=== PATIENT | female | born 1955 | race Caucasian/White ===

== ENCOUNTER → 2016-09-28 | Outpatient (CLI) | payer OTHER ==
[~2016-09-28] VITALS: Ht 160 cm; Wt 69.3 kg
[~2016-09-28] MED LIST: ASPI-825 PO; CARV3 PO; CLOP75 PO; DICY20 PO; DONNATAL PO; ESOM40CA PO; ESTR0.5T4 PO; EZET10 PO; FENO145T PO; FOLI1TAB15 PO; FURO20 PO; FURO40 PO; GABA-529 PO; GLIM2 PO; HYD25 PO; HYDR-3971 PO; HYDR200T4 PO; ISOS30TA53 PO; ISOS60TA PO; LEVE250T55 PO; LEVE500T53 PO; LOSA50TA37 PO; METHI5 PO; MULT-1203 PO; MYCO500T5 PO; NITR0.4T27 SL; OMEG1CAP31 PO; OMEP40CA12 PO; ONDA4 PO; PANT40TA25 PO; POTA8TAB4 PO; RANO10003 PO; ROSU40 PO; SUCR1TAB PO; TEMA30 PO; VALS80TA2 GT; WARF2 PO; WARF2.5 PO; WARF3TAB29 PO; [UNRECOGNIZED DRUG - CODE] PO; [UNRECOGNIZED DRUG - OTHER] PO
[2016-09-28 14:01] VITALS: BP 123/72
== END | disposition home or self-care (01) ==
LOC: HBOWC 12:34
PROVIDERS: ATTEND Emergency Medicine
DX: E11.621 Type 2 diabetes mellitus with foot ulcer (principal); L97.521 Non-pressure chronic ulcer of other part of left foot limited to breakdown of skin; E11.51 Type 2 diabetes mellitus with diabetic peripheral angiopathy without gangrene; I25.2 Old myocardial infarction; E11.22 Type 2 diabetes mellitus with diabetic chronic kidney disease; I13.0 Hypertensive heart and chronic kidney disease with heart failure and stage 1 through stage 4 chronic kidney disease, or unspecified chronic kidney disease; N18.9 Chronic kidney disease, unspecified; I50.30 Unspecified diastolic (congestive) heart failure; E66.9 Obesity, unspecified; I48.91 Unspecified atrial fibrillation; E46 Unspecified protein-calorie malnutrition; Z86.718 Personal history of other venous thrombosis and embolism
CPT/HCPCS: 97597; G0463

== ENCOUNTER → 2016-10-08 | Outpatient (CLI) | payer OTHER ==
[~2016-10-08] MED LIST changes: -DONNATAL PO; -ESTR0.5T4 PO; -EZET10 PO; -FENO145T PO; -GLIM2 PO; -ISOS60TA PO; -OMEG1CAP31 PO; -POTA8TAB4 PO; -VALS80TA2 GT; -[UNRECOGNIZED DRUG - CODE] PO; -[UNRECOGNIZED DRUG - OTHER] PO
[2016-10-08 09:36] VITALS: BP 99/59
== END | disposition home or self-care (01) ==
LOC: HBOWC 09:24
PROVIDERS: ATTEND Emergency Medicine
DX: E11.621 Type 2 diabetes mellitus with foot ulcer (principal); L97.521 Non-pressure chronic ulcer of other part of left foot limited to breakdown of skin; D68.61 Antiphospholipid syndrome; E11.51 Type 2 diabetes mellitus with diabetic peripheral angiopathy without gangrene; E72.11 Homocystinuria; E11.22 Type 2 diabetes mellitus with diabetic chronic kidney disease; I12.9 Hypertensive chronic kidney disease with stage 1 through stage 4 chronic kidney disease, or unspecified chronic kidney disease; N18.4 Chronic kidney disease, stage 4 (severe); E66.8 Other obesity; I25.2 Old myocardial infarction; I48.91 Unspecified atrial fibrillation
CPT/HCPCS: 97597

== ENCOUNTER → 2016-10-26 | Outpatient (CLI) | payer OTHER ==
[2016-10-26 09:14] VITALS: BP 106/68
== END | disposition home or self-care (01) ==
LOC: HBOWC 08:24
PROVIDERS: ATTEND Emergency Medicine
DX: E11.621 Type 2 diabetes mellitus with foot ulcer (principal); L97.511 Non-pressure chronic ulcer of other part of right foot limited to breakdown of skin; L97.521 Non-pressure chronic ulcer of other part of left foot limited to breakdown of skin; E11.51 Type 2 diabetes mellitus with diabetic peripheral angiopathy without gangrene; D68.61 Antiphospholipid syndrome; E66.8 Other obesity; I25.2 Old myocardial infarction; E11.22 Type 2 diabetes mellitus with diabetic chronic kidney disease; I13.0 Hypertensive heart and chronic kidney disease with heart failure and stage 1 through stage 4 chronic kidney disease, or unspecified chronic kidney disease; N18.4 Chronic kidney disease, stage 4 (severe); I50.30 Unspecified diastolic (congestive) heart failure; I48.91 Unspecified atrial fibrillation; Z86.718 Personal history of other venous thrombosis and embolism
CPT/HCPCS: 97597

== ENCOUNTER → 2016-11-09 | Outpatient (CLI) | payer OTHER ==
[~2016-11-09] MED LIST changes: -DICY20 PO; +ESOM40CA; -ESOM40CA PO; -FURO20 PO; -HYD25 PO; -HYDR-3971 PO; -LEVE250T55 PO; -MYCO500T5 PO; -OMEP40CA12 PO; -ONDA4 PO; -PANT40TA25 PO; -SUCR1TAB PO; -WARF2 PO; -WARF3TAB29 PO
[2016-11-09 10:00] VITALS: BP 113/61
== END | disposition home or self-care (01) ==
LOC: HBOWC 09:08
PROVIDERS: ATTEND Emergency Medicine
DX: E11.621 Type 2 diabetes mellitus with foot ulcer (principal); L97.521 Non-pressure chronic ulcer of other part of left foot limited to breakdown of skin; E11.22 Type 2 diabetes mellitus with diabetic chronic kidney disease; I13.0 Hypertensive heart and chronic kidney disease with heart failure and stage 1 through stage 4 chronic kidney disease, or unspecified chronic kidney disease; N18.4 Chronic kidney disease, stage 4 (severe); I50.30 Unspecified diastolic (congestive) heart failure; I25.2 Old myocardial infarction; E66.8 Other obesity; D68.61 Antiphospholipid syndrome; E11.51 Type 2 diabetes mellitus with diabetic peripheral angiopathy without gangrene; I48.91 Unspecified atrial fibrillation; E72.11 Homocystinuria; E46 Unspecified protein-calorie malnutrition; Z86.718 Personal history of other venous thrombosis and embolism
CPT/HCPCS: 97597

== ENCOUNTER 2016-11-17 05:48 | Day surgery (SDC) | payer OTHER ==
[~2016-11-17] VITALS: Ht 160 cm; Wt 70.0 kg
[~2016-11-17 05:48] MED LIST changes: -ESOM40CA; +ESOM40CA PO; +FURO20 PO; -FURO40 PO; +LEVE250T55 PO; -LEVE500T53 PO; +SODIUM CHLORIDE 0.9% 1,000 ML IV ONE
[2016-11-17] MEDS ORDERED: SODIUM CHLORIDE 0.9% 1,000 ML IV ONE (06:04)
[2016-11-17] MEDS ORDERED: DICY20 PO (06:27)
[2016-11-17] MEDS ORDERED: ONDA4 PO (06:27)
[2016-11-17] MEDS ORDERED: LEVE500T53 PO (06:27)
[2016-11-17] MEDS ORDERED: SUCR1TAB PO (06:27)
[2016-11-17] MEDS ORDERED: OMEP40CA12 PO (06:27)
[2016-11-17] MEDS ORDERED: WARF3TAB29 PO (06:27)
[2016-11-17] MEDS ORDERED: HYDR-3971 PO (06:27)
[2016-11-17] MEDS ORDERED: HYD25 PO (06:27)
[2016-11-17] MEDS ORDERED: WARF2 PO (06:27)
[2016-11-17] MEDS ORDERED: MYCO500T5 PO (06:27)
[2016-11-17] MEDS ORDERED: PANT40TA25 PO (06:27)
[2016-11-17 06:35] LABS: BASOPHILS % (AUTO) 0.3 % (0.0-2.0); EOSINOPHILS % (AUTO) 0 % (1.0-6.0); HEMATOCRIT 42.9 % (36-46); HEMOGLOBIN 13.6 g/dL (12.0-16.0); LYMPHOCYTES # (AUTO) 2.6 K/uL (1.0-4.8); LYMPHOCYTES % (AUTO) 39.8 % (22.0-44.0); MEAN CORPUSCULAR HGB CONC 31.8 G/dL (31.0-37.0); MEAN CORPUSCULAR VOLUME 88 fL (80-100); MONOCYTES # (AUTO) 0.9 K/uL (0.1-1.0); MONOCYTES % (AUTO) 13.5 % (2.0-9.0); NEUTROPHILS % (AUTO) 46.4 % (40.0-70.0); PLATELET COUNT (AUTO) 144 K/uL (150-450); RED BLOOD CELL COUNT(AUTO) 4.88 MIL/uL (4.00-5.20); RED CELL DISTRIBUTION WIDTH 16.3 % (11.5-14.5); WHITE BLOOD COUNT (AUTO) 6.6 K/uL (4.5-11.0)
[2016-11-17 06:46] LABS: INR 1.5 (0.9-1.1); PROTHROMBIN TIME 16.1 SEC (9.4-11.6)
[2016-11-17 07:05] LABS: CALCIUM, TOTAL 8.9 mg/dL (8.8-10.5); CREATININE 1.22 mg/dL (0.60-1.30); POTASSIUM 3.5 mmol/L (3.5-5.1)
[2016-11-17 07:07] LABS: CHOL/HDL RATIO 2.2 (3.9-5.7)
[2016-11-17] MEDS ORDERED: SODIUM BICARBONATE 50 MEQ/50 ML VIAL ONE (07:35)
[2016-11-17] MEDS ORDERED: LIDOCAINE HCL/PF 1% 30 ML VIAL ONE (07:35)
[2016-11-17] MEDS ORDERED: IODIXANOL 320 MG/ML 100 ML VIAL ONE (07:35)
[2016-11-17] MEDS ORDERED: HEPARIN SODIUM 1000 UNITS/NS 500 ML ONE (07:36)
[2016-11-17 07:43] VITALS: BP 135/80
[2016-11-17] MEDS ORDERED: HEPARIN SODIUM 1000 UNITS/NS 500 ML IARTER ONE (08:10)
[2016-11-17] MEDS ORDERED: IODIXANOL 320 MG/ML 100 ML VIAL IARTER ONE ×2 (08:14)
[2016-11-17] MEDS ORDERED: IODIXANOL 320 MG/ML 50 ML VIAL ONE ×2 (08:51→09:25)
[2016-11-17] MEDS ORDERED: HEPARIN SODIUM,PORCINE 1,000 UNITS/ML 10 ML VIAL ONE (08:53)
[2016-11-17] MEDS ORDERED: LIDOCAINE 1% 30 ML/SOD BICARB 8.4% 4 ML SQ ONE (08:55)
[2016-11-17] MEDS ORDERED: HEPARIN SODIUM,PORCINE 5,000 UNITS/ML VIAL IVP ONE (08:59)
[2016-11-17 09:51] VITALS: BP 160/83
== END 2016-11-17 15:45 | disposition home or self-care (01) ==
LOC: SDS 05:48 → EDSTATUS 07:30 → SDS 15:45
PROVIDERS: ATTEND Radiology Vascular & Interventional Radiology
DX: I70.245 Atherosclerosis of native arteries of left leg with ulceration of other part of foot (principal); E11.22 Type 2 diabetes mellitus with diabetic chronic kidney disease; N18.3 Chronic kidney disease, stage 3 (moderate); J45.909 Unspecified asthma, uncomplicated; M54.30 Sciatica, unspecified side; Z88.0 Allergy status to penicillin; Z87.891 Personal history of nicotine dependence; Z98.42 Cataract extraction status, left eye; Z98.41 Cataract extraction status, right eye; Z90.710 Acquired absence of both cervix and uterus; Z95.810 Presence of automatic (implantable) cardiac defibrillator; Z86.79 Personal history of other diseases of the circulatory system; Z86.73 Personal history of transient ischemic attack (TIA), and cerebral infarction without residual deficits; Z85.09 Personal history of malignant neoplasm of other digestive organs; Z85.42 Personal history of malignant neoplasm of other parts of uterus
CPT/HCPCS: 36415; 37228; 75710; 80048; 80061; 85025; 85610; 85730; 93005; C1725; C1760; C1769 ×2; C1887; C1892; J1644 ×2; J3490 ×2; J7030; Q9967 ×2; 36200; 36245; 75630; 75716; 75962; 76937

== ENCOUNTER → 2016-11-23 | Outpatient (CLI) | payer OTHER ==
[~2016-11-23] MED LIST changes: +DICY20 PO; +HYD25 PO; +HYDR-3971 PO; +LEVE500T53 PO; +MYCO500T5 PO; +OMEP40CA12 PO; +ONDA4 PO; +PANT40TA25 PO; -SODIUM CHLORIDE 0.9% 1,000 ML IV ONE; +SUCR1TAB PO; +WARF2 PO; +WARF3TAB29 PO
[2016-11-23 13:50] VITALS: BP 114/62
== END | disposition home or self-care (01) ==
LOC: HBOWC 13:09
PROVIDERS: ATTEND Emergency Medicine Undersea and Hyperbaric Medicine
DX: E11.621 Type 2 diabetes mellitus with foot ulcer (principal); L97.521 Non-pressure chronic ulcer of other part of left foot limited to breakdown of skin; E11.22 Type 2 diabetes mellitus with diabetic chronic kidney disease; I13.0 Hypertensive heart and chronic kidney disease with heart failure and stage 1 through stage 4 chronic kidney disease, or unspecified chronic kidney disease; N18.4 Chronic kidney disease, stage 4 (severe); I50.30 Unspecified diastolic (congestive) heart failure; I25.2 Old myocardial infarction; E66.9 Obesity, unspecified; E46 Unspecified protein-calorie malnutrition; E11.51 Type 2 diabetes mellitus with diabetic peripheral angiopathy without gangrene; I48.91 Unspecified atrial fibrillation; Z86.718 Personal history of other venous thrombosis and embolism
CPT/HCPCS: 97597

== ENCOUNTER → 2016-12-10 | Outpatient (CLI) | payer OTHER ==
[~2016-12-10] MED LIST changes: +LIDOCAINE HCL 2% 5 ML JELLY TP ONE; -WARF2.5 PO
[2016-12-10 10:28] VITALS: BP 100/57
== END | disposition home or self-care (01) ==
LOC: HBOWC 09:35
PROVIDERS: ATTEND Emergency Medicine
DX: E11.621 Type 2 diabetes mellitus with foot ulcer (principal); L97.521 Non-pressure chronic ulcer of other part of left foot limited to breakdown of skin; D68.61 Antiphospholipid syndrome; E11.51 Type 2 diabetes mellitus with diabetic peripheral angiopathy without gangrene; I25.2 Old myocardial infarction; E11.22 Type 2 diabetes mellitus with diabetic chronic kidney disease; I12.9 Hypertensive chronic kidney disease with stage 1 through stage 4 chronic kidney disease, or unspecified chronic kidney disease; N18.4 Chronic kidney disease, stage 4 (severe); I48.91 Unspecified atrial fibrillation; J45.909 Unspecified asthma, uncomplicated; E66.8 Other obesity; Z90.710 Acquired absence of both cervix and uterus; Z87.891 Personal history of nicotine dependence; Z86.718 Personal history of other venous thrombosis and embolism; Z86.73 Personal history of transient ischemic attack (TIA), and cerebral infarction without residual deficits; Z85.42 Personal history of malignant neoplasm of other parts of uterus; Z85.00 Personal history of malignant neoplasm of unspecified digestive organ; Z79.01 Long term (current) use of anticoagulants
CPT/HCPCS: 97597

== ENCOUNTER → 2016-12-24 | Outpatient (CLI) | payer OTHER ==
[~2016-12-24] MED LIST changes: -LIDOCAINE HCL 2% 5 ML JELLY TP ONE
[2016-12-24 13:48] VITALS: BP 119/70
== END | disposition home or self-care (01) ==
LOC: HBOWC 13:08
PROVIDERS: ATTEND Emergency Medicine
DX: E11.621 Type 2 diabetes mellitus with foot ulcer (principal); L97.521 Non-pressure chronic ulcer of other part of left foot limited to breakdown of skin; E11.51 Type 2 diabetes mellitus with diabetic peripheral angiopathy without gangrene; E11.22 Type 2 diabetes mellitus with diabetic chronic kidney disease; I13.0 Hypertensive heart and chronic kidney disease with heart failure and stage 1 through stage 4 chronic kidney disease, or unspecified chronic kidney disease; I50.30 Unspecified diastolic (congestive) heart failure; N18.4 Chronic kidney disease, stage 4 (severe); I25.2 Old myocardial infarction; E66.8 Other obesity; J45.909 Unspecified asthma, uncomplicated; I48.91 Unspecified atrial fibrillation; D68.61 Antiphospholipid syndrome; Z85.00 Personal history of malignant neoplasm of unspecified digestive organ; Z85.42 Personal history of malignant neoplasm of other parts of uterus; Z86.718 Personal history of other venous thrombosis and embolism; Z86.73 Personal history of transient ischemic attack (TIA), and cerebral infarction without residual deficits; Z87.891 Personal history of nicotine dependence; Z98.42 Cataract extraction status, left eye; Z90.710 Acquired absence of both cervix and uterus; Z98.41 Cataract extraction status, right eye; Z79.01 Long term (current) use of anticoagulants
CPT/HCPCS: 97597

== ENCOUNTER → 2017-01-07 | Outpatient (CLI) | payer OTHER ==
[2017-01-07 10:31] VITALS: BP 98/62
== END | disposition home or self-care (01) ==
LOC: HBOWC 09:56
PROVIDERS: ATTEND Emergency Medicine Undersea and Hyperbaric Medicine
DX: E11.621 Type 2 diabetes mellitus with foot ulcer (principal); L97.521 Non-pressure chronic ulcer of other part of left foot limited to breakdown of skin; E11.51 Type 2 diabetes mellitus with diabetic peripheral angiopathy without gangrene; E11.22 Type 2 diabetes mellitus with diabetic chronic kidney disease; I12.9 Hypertensive chronic kidney disease with stage 1 through stage 4 chronic kidney disease, or unspecified chronic kidney disease; N18.4 Chronic kidney disease, stage 4 (severe); I50.30 Unspecified diastolic (congestive) heart failure; J45.909 Unspecified asthma, uncomplicated; I48.91 Unspecified atrial fibrillation; I25.2 Old myocardial infarction; E66.9 Obesity, unspecified; D68.61 Antiphospholipid syndrome; Z85.00 Personal history of malignant neoplasm of unspecified digestive organ; Z85.42 Personal history of malignant neoplasm of other parts of uterus; Z87.891 Personal history of nicotine dependence; Z86.73 Personal history of transient ischemic attack (TIA), and cerebral infarction without residual deficits; Z88.0 Allergy status to penicillin; Z98.42 Cataract extraction status, left eye; Z98.41 Cataract extraction status, right eye; Z79.01 Long term (current) use of anticoagulants; Z90.710 Acquired absence of both cervix and uterus
CPT/HCPCS: 97597

== ENCOUNTER → 2017-01-21 | Outpatient (CLI) | payer OTHER ==
[2017-01-21 10:39] VITALS: BP 99/58
== END | disposition home or self-care (01) ==
LOC: HBOWC 09:13
PROVIDERS: ATTEND Emergency Medicine
DX: E11.621 Type 2 diabetes mellitus with foot ulcer (principal); L97.524 Non-pressure chronic ulcer of other part of left foot with necrosis of bone; S90.511D Abrasion, right ankle, subsequent encounter; D68.61 Antiphospholipid syndrome; E11.40 Type 2 diabetes mellitus with diabetic neuropathy, unspecified; G89.29 Other chronic pain; M32.9 Systemic lupus erythematosus, unspecified; E11.51 Type 2 diabetes mellitus with diabetic peripheral angiopathy without gangrene; E11.22 Type 2 diabetes mellitus with diabetic chronic kidney disease; I13.0 Hypertensive heart and chronic kidney disease with heart failure and stage 1 through stage 4 chronic kidney disease, or unspecified chronic kidney disease; N18.4 Chronic kidney disease, stage 4 (severe); I50.30 Unspecified diastolic (congestive) heart failure; E66.9 Obesity, unspecified; I25.2 Old myocardial infarction; J45.909 Unspecified asthma, uncomplicated; I48.91 Unspecified atrial fibrillation; Z85.42 Personal history of malignant neoplasm of other parts of uterus; Z85.00 Personal history of malignant neoplasm of unspecified digestive organ; Z87.891 Personal history of nicotine dependence; Z86.73 Personal history of transient ischemic attack (TIA), and cerebral infarction without residual deficits; Z79.01 Long term (current) use of anticoagulants; Z88.0 Allergy status to penicillin; Z98.42 Cataract extraction status, left eye; Z90.710 Acquired absence of both cervix and uterus; Z98.41 Cataract extraction status, right eye; X58.XXXD Exposure to other specified factors, subsequent encounter
CPT/HCPCS: 97597

== ENCOUNTER → 2017-02-04 | Outpatient (CLI) | payer OTHER ==
[~2017-02-04] MED LIST changes: +LIDOCAINE HCL 2% 5 ML JELLY TP ONE
[2017-02-04 10:35] VITALS: BP 102/62
== END | disposition home or self-care (01) ==
LOC: HBOWC 09:33
PROVIDERS: ATTEND Emergency Medicine
DX: E11.621 Type 2 diabetes mellitus with foot ulcer (principal); L97.524 Non-pressure chronic ulcer of other part of left foot with necrosis of bone; L97.511 Non-pressure chronic ulcer of other part of right foot limited to breakdown of skin; E11.622 Type 2 diabetes mellitus with other skin ulcer; L97.311 Non-pressure chronic ulcer of right ankle limited to breakdown of skin; E11.22 Type 2 diabetes mellitus with diabetic chronic kidney disease; I13.0 Hypertensive heart and chronic kidney disease with heart failure and stage 1 through stage 4 chronic kidney disease, or unspecified chronic kidney disease; N18.4 Chronic kidney disease, stage 4 (severe); I50.30 Unspecified diastolic (congestive) heart failure; Z79.01 Long term (current) use of anticoagulants; E66.9 Obesity, unspecified; I25.2 Old myocardial infarction; G89.29 Other chronic pain; Z85.42 Personal history of malignant neoplasm of other parts of uterus; Z87.891 Personal history of nicotine dependence; Z86.73 Personal history of transient ischemic attack (TIA), and cerebral infarction without residual deficits; L93.0 Discoid lupus erythematosus; M32.9 Systemic lupus erythematosus, unspecified; E11.40 Type 2 diabetes mellitus with diabetic neuropathy, unspecified; E11.51 Type 2 diabetes mellitus with diabetic peripheral angiopathy without gangrene; I48.91 Unspecified atrial fibrillation; J45.909 Unspecified asthma, uncomplicated; Z86.718 Personal history of other venous thrombosis and embolism
CPT/HCPCS: 97597

== ENCOUNTER 2017-10-20 13:21 | Inpatient (IN) | payer OTHER ==
[~2017-10-20] VITALS: Ht 160 cm; Wt 79.0 kg
[~2017-10-20 13:21] MED LIST changes: -HYDR-3971 PO; +HYDR-4069 PO; +ISOS30TA11 PO; -ISOS30TA53 PO; -LIDOCAINE HCL 2% 5 ML JELLY TP ONE; +MULTIVITAMINS, THERAPEUTIC TABLET PO SCH; -NITR0.4T27 SL; +NITR0.4T50 SL
[2017-10-20] MEDS ORDERED: METHI5 PO (13:42)
[2017-10-20 13:47] LABS: GLUCOSE,POINT OF CARE 83 MG/DL (70-110)
[2017-10-20] MEDS ORDERED: EVOL140S SQ (14:10)
[2017-10-20] MEDS ORDERED: TICA90TA PO (14:10)
[2017-10-20] MEDS ORDERED: POTA8TAB4 PO (14:10)
[2017-10-20] MEDS ORDERED: ASPIRIN 81 MG CHEWABLE TABLET PO ONE (14:15)
[2017-10-20] MEDS ORDERED: NITROGLYCERIN 2% (1 GM=INCH) PACKET TP ONE (14:15)
[2017-10-20 14:28] LABS: BASOPHILS % (AUTO) 0.6 % (0.0-2.0); EOSINOPHILS % (AUTO) 0 % (1.0-6.0); HEMOGLOBIN 14.3 g/dL (12.0-16.0); LYMPHOCYTES # (AUTO) 2.4 K/uL (1.0-4.8); LYMPHOCYTES % (AUTO) 33.1 % (22.0-44.0); MEAN CORPUSCULAR HEMOGLOBIN 27.9 pg (26.0-34.0); MEAN CORPUSCULAR HGB CONC 33.2 G/dL (31.0-37.0); MEAN CORPUSCULAR VOLUME 84 fL (80-100); MONOCYTES # (AUTO) 0.8 K/uL (0.1-1.0); MONOCYTES % (AUTO) 11.3 % (2.0-9.0); PLATELET COUNT (AUTO) 164 K/uL (150-450); RED BLOOD CELL COUNT(AUTO) 5.12 MIL/uL (4.00-5.20); RED CELL DISTRIBUTION WIDTH 16.2 % (11.5-14.5)
[2017-10-20] MEDS ORDERED: MORPHINE SULFATE 4 MG/ML SYRINGE IVP ONE ×2 (14:30→16:45)
[2017-10-20] MEDS ORDERED: ONDANSETRON HCL 4 MG/2 ML VIAL IVP ONE (14:30)
[2017-10-20 14:40] LABS: INR 3.4 (0.9-1.1); PROTHROMBIN TIME 33.9 SEC (9.4-11.6)
[2017-10-20 14:53] LABS: CARBON DIOXIDE 28 mmol/L (22-29); CHLORIDE 104 mmol/L (98-107); POTASSIUM 3.9 mmol/L (3.5-5.1); SODIUM SERUM 141 mmol/L (136-145)
[2017-10-20 14:54] LABS: ANION GAP 9 mmol/L (8-16); CALCIUM, TOTAL 9.5 mg/dL (8.8-10.5); CREATININE 1.31 mg/dL (0.60-1.30); GLOMERULAR FILTR. RATE CALC 41 mL/min (>60); GLUCOSE,RANDOM 82 mg/dL (70-110); UREA NITROGEN, BLOOD 24 mg/dL (7-18)
[2017-10-20 15:00] LABS: B-TYPE NATRIURETIC PEPTIDE 343 pg/mL (0-100)
[2017-10-20] MEDS ORDERED: SODIUM CHLORIDE 0.9% 100 ML ONE (15:15)
[2017-10-20] MEDS ORDERED: IOVERSOL 350 MG/ML 100 ML VIAL ONE (15:15)
[2017-10-20 15:19] LABS: ALANINE AMINOTRANSFERASE 29 U/L (12-78); ALBUMIN 3.6 g/dL (3.4-5.0); ALKALINE PHOSPHATASE 79 U/L (46-116); ASPARTATE AMINOTRANSFERASE 29 U/L (15-37); BILIRUBIN,TOTAL 0.4 mg/dL (0.1-1.0); CREATINE KINASE MB 1.8 ng/mL (0-5); CREATINE KINASE, TOTAL 162 U/L (26-192); TOTAL PROTEIN, SERUM 8.1 g/dL (6.4-8.2)
[2017-10-20 16:28] LABS: APPEARANCE,URINE CLEAR (CLEAR); BILIRUBIN,URINE NEGATIVE (NEGATIVE); GLUCOSE, URINE (UA) NEGATIVE (NEGATIVE); KETONES,URINE NEGATIVE (NEGATIVE); LEUKOCYTE ESTERASE ,URINE NEGATIVE (NEGATIVE); NITRATE,URINE POSITIVE (NEGATIVE); OCCULT BLOOD,URINE SMALL (NEGATIVE); PH,URINE 5.5 (5.0-8.0); PROTEIN,URINE TRACE (NEGATIVE); UROBILINOGEN,URINE 0.2 mg/dL (<=1.0)
[2017-10-20] MEDS ORDERED: 0.9% SODIUM CHLORIDE 10 ML SYRINGE IVP PRN (16:45)
[2017-10-20] MEDS ORDERED: ACETAMINOPHEN 325 MG TABLET PO PRN (16:45)
[2017-10-20] MEDS ORDERED: MORPHINE SULFATE 4 MG/ML SYRINGE IVP PRN (16:45)
[2017-10-20] MEDS ORDERED: ONDANSETRON HCL 4 MG/2 ML VIAL IVP PRN (16:45)
[2017-10-20 16:47] LABS: BACTERIA,URINE Moderate /HPF (None Seen); RBC,URINE 0-2 /HPF (0-2); WBC,URINE 0-2 /HPF (0-5)
[2017-10-20 16:48] LABS: RENAL EPITHELIAL CELLS,URINE Few /LPF (None Seen); SQUAMOUS EPITHELIAL CELL,UR Few /LPF (None Seen)
[2017-10-20] MEDS ORDERED: NITROGLYCERIN 0.4 MG SUBLINGUAL TABLET #25 SL PRN (20:00)
[2017-10-20] MEDS ORDERED: HYDROCODONE/ACETAMINOPHEN 10-325 MG TABLET PO SCH (20:00)
[2017-10-20] MEDS: ASPIRIN 81 MG CHEWABLE TABLET PO SCH (20:00)
[2017-10-20] MEDS: FUROSEMIDE 20 MG TABLET PO SCH (20:00)
[2017-10-20] MEDS ORDERED: ONDANSETRON HCL 4 MG TABLET PO PRN (20:00)
[2017-10-20] MEDS ORDERED: ISOSORBIDE DINITRATE 20 MG TABLET PO SCH (21:00)
[2017-10-20] MEDS ORDERED: [UNRECOGNIZED DRUG - OTHER] PO SCH (21:00)
[2017-10-20] MEDS ORDERED: CARVEDILOL 3.125 MG TABLET PO SCH (21:00)
[2017-10-20] MEDS ORDERED: ISOSORBIDE DINITRATE PO SCH (21:00)
[2017-10-20] MEDS ORDERED: [UNRECOGNIZED DRUG - OTHER] PO SCH (21:00)
[2017-10-20 21:40] VITALS: BP 132/74
[2017-10-20] MEDS: TICAGRELOR 90 MG TABLET PO SCH (22:28)
[2017-10-20] MEDS: DICYCLOMINE HCL 20 MG TABLET PO SCH (22:28)
[2017-10-20] MEDS: ROSUVASTATIN CALCIUM 20 MG TABLET PO SCH (22:29)
[2017-10-20] MEDS: FOLIC ACID 1 MG TABLET PO SCH (22:30)
[2017-10-20] MEDS: LevETIRAcetam 500 MG TABLET PO SCH (22:32)
[2017-10-20] MEDS: GABAPENTIN 300 MG CAPSULE PO SCH (22:32)
[2017-10-20] MEDS: HYDROXYCHLOROQUINE SULFATE 200 MG TABLET PO SCH (22:33)
[2017-10-20] MEDS: RANOLAZINE 500 MG SR TABLET PO SCH (22:33)
[2017-10-21] VITALS (8 sets, daily range): BP systolic 96–120; BP diastolic 56–72
[2017-10-21 06:41] LABS: ALBUMIN 3.2 g/dL (3.4-5.0); BILIRUBIN,TOTAL 0.3 mg/dL (0.1-1.0); CALCIUM, TOTAL 9.1 mg/dL (8.8-10.5); CREATININE 1.48 mg/dL (0.60-1.30); MAGNESIUM 1.8 mg/dL (1.80-2.40); POTASSIUM 3.7 mmol/L (3.5-5.1); TOTAL PROTEIN, SERUM 7.1 g/dL (6.4-8.2)
[2017-10-21 06:58] LABS: BASOPHILS % (AUTO) 0.4 % (0.0-2.0); EOSINOPHILS % (AUTO) 0.4 % (1.0-6.0); HEMATOCRIT 40.3 % (36-46); HEMOGLOBIN 13.5 g/dL (12.0-16.0); LYMPHOCYTES # (AUTO) 2.4 K/uL (1.0-4.8); MEAN CORPUSCULAR HEMOGLOBIN 28.5 pg (26.0-34.0); MEAN CORPUSCULAR HGB CONC 33.6 G/dL (31.0-37.0); MEAN CORPUSCULAR VOLUME 85 fL (80-100); MONOCYTES # (AUTO) 0.9 K/uL (0.1-1.0); NEUTROPHILS % (AUTO) 47.2 % (40.0-70.0); PLATELET COUNT (AUTO) 154 K/uL (150-450); RED BLOOD CELL COUNT(AUTO) 4.74 MIL/uL (4.00-5.20); RED CELL DISTRIBUTION WIDTH 16.6 % (11.5-14.5)
[2017-10-21] MEDS: ASPIRIN 81 MG CHEWABLE TABLET PO SCH (08:50)
[2017-10-21] MEDS: FUROSEMIDE 20 MG TABLET PO SCH (08:50)
[2017-10-21] MEDS: RANOLAZINE 500 MG SR TABLET PO SCH ×2 (08:50→20:31)
[2017-10-21] MEDS: FOLIC ACID 1 MG TABLET PO SCH ×2 (08:50→20:30)
[2017-10-21] MEDS: LevETIRAcetam 500 MG TABLET PO SCH ×2 (08:50→20:29)
[2017-10-21] MEDS: MULTIVITAMINS, THERAPEUTIC TABLET PO SCH (08:50)
[2017-10-21] MEDS: ISOSORBIDE DINITRATE 20 MG TABLET PO SCH ×2 (08:51→21:06)
[2017-10-21] MEDS: HYDROXYCHLOROQUINE SULFATE 200 MG TABLET PO SCH ×2 (08:52→20:30)
[2017-10-21] MEDS: TICAGRELOR 90 MG TABLET PO SCH ×2 (08:52→20:30)
[2017-10-21] MEDS: GABAPENTIN 100 MG CAPSULE PO SCH (08:52)
[2017-10-21] MEDS: DICYCLOMINE HCL 20 MG TABLET PO SCH ×2 (08:53→20:31)
[2017-10-21] MEDS ORDERED: [UNRECOGNIZED DRUG - OTHER] PO SCH (09:00)
[2017-10-21] MEDS ORDERED: WARFARIN SODIUM 2 MG TABLET PO SCH ×2 (09:00→17:00)
[2017-10-21] MEDS: FUROSEMIDE 20 MG/2 ML VIAL IVP SCH (09:00)
[2017-10-21] MEDS: CARVEDILOL 3.125 MG TABLET PO SCH ×2 (10:02→20:28)
[2017-10-21 11:03] LABS: INR 3.2 (0.9-1.1); PROTHROMBIN TIME 31.8 SEC (9.4-11.6)
[2017-10-21] MEDS: GABAPENTIN 300 MG CAPSULE PO SCH (20:30)
[2017-10-21] MEDS ORDERED: GABA-531 PO (20:31)
[2017-10-21] MEDS ORDERED: CARV6 PO (20:31)
[2017-10-21] MEDS: ROSUVASTATIN CALCIUM 20 MG TABLET PO SCH (20:31)
[2017-10-21] MEDS: HydrOXYzine HCL 25 MG TABLET PO SCH (21:55)
[2017-10-21] MEDS ORDERED: MORPHINE SULFATE 4 MG/ML SYRINGE IVP ONE (23:00)
[2017-10-22] VITALS (7 sets, daily range): BP systolic 101–124; BP diastolic 58–65
[2017-10-22 06:21] LABS: INR 2.4 (0.9-1.1); PROTHROMBIN TIME 24.1 SEC (9.4-11.6)
[2017-10-22 06:22] LABS: BASOPHILS % (AUTO) 0.4 % (0.0-2.0); EOSINOPHILS % (AUTO) 0.3 % (1.0-6.0); HEMATOCRIT 36.7 % (36-46); HEMOGLOBIN 12.4 g/dL (12.0-16.0); LYMPHOCYTES # (AUTO) 2.2 K/uL (1.0-4.8); LYMPHOCYTES % (AUTO) 36.3 % (22.0-44.0); MEAN CORPUSCULAR HEMOGLOBIN 28.3 pg (26.0-34.0); MEAN CORPUSCULAR HGB CONC 33.8 G/dL (31.0-37.0); MEAN CORPUSCULAR VOLUME 84 fL (80-100); MONOCYTES # (AUTO) 0.9 K/uL (0.1-1.0); MONOCYTES % (AUTO) 15.5 % (2.0-9.0); NEUTROPHILS # (AUTO) 2.9 K/uL (1.8-7.7); NEUTROPHILS % (AUTO) 47.5 % (40.0-70.0); PLATELET COUNT (AUTO) 140 K/uL (150-450); RED BLOOD CELL COUNT(AUTO) 4.39 MIL/uL (4.00-5.20); RED CELL DISTRIBUTION WIDTH 15.6 % (11.5-14.5)
[2017-10-22 07:06] LABS: ALBUMIN 2.9 g/dL (3.4-5.0); BILIRUBIN,TOTAL 0.3 mg/dL (0.1-1.0); CALCIUM, TOTAL 8.7 mg/dL (8.8-10.5); CREATININE 1.31 mg/dL (0.60-1.30); MAGNESIUM 1.8 mg/dL (1.80-2.40); POTASSIUM 3.5 mmol/L (3.5-5.1); TOTAL PROTEIN, SERUM 6.4 g/dL (6.4-8.2)
[2017-10-22] MEDS: MULTIVITAMINS, THERAPEUTIC TABLET PO SCH (08:41)
[2017-10-22] MEDS: CARVEDILOL 3.125 MG TABLET PO SCH ×2 (08:41→21:52)
[2017-10-22] MEDS: LevETIRAcetam 500 MG TABLET PO SCH ×2 (08:41→21:52)
[2017-10-22] MEDS: FUROSEMIDE 20 MG/2 ML VIAL IVP SCH ×2 (08:42→09:00)
[2017-10-22] MEDS: ASPIRIN 81 MG CHEWABLE TABLET PO SCH (08:42)
[2017-10-22] MEDS: FOLIC ACID 1 MG TABLET PO SCH ×2 (08:43→21:51)
[2017-10-22] MEDS: RANOLAZINE 500 MG SR TABLET PO SCH ×2 (08:43→21:51)
[2017-10-22] MEDS: ISOSORBIDE DINITRATE 20 MG TABLET PO SCH ×2 (08:46→21:52)
[2017-10-22] MEDS: GABAPENTIN 100 MG CAPSULE PO SCH (08:46)
[2017-10-22] MEDS: DICYCLOMINE HCL 20 MG TABLET PO SCH ×2 (08:46→21:52)
[2017-10-22] MEDS: TICAGRELOR 90 MG TABLET PO SCH ×2 (08:47→21:52)
[2017-10-22] MEDS: HYDROXYCHLOROQUINE SULFATE 200 MG TABLET PO SCH ×2 (08:49→21:52)
[2017-10-22] MEDS: METHIMAZOLE 5 MG TABLET PO SCH (08:50)
[2017-10-22] MEDS: HydrOXYzine PAMOATE 25 MG CAPSULE PO PRN ×3 (10:35→21:52)
[2017-10-22] MEDS: HYDROCODONE/ACETAMINOPHEN 10-325 MG TABLET PO PRN ×3 (10:36→21:53)
[2017-10-22] MEDS: WARFARIN SODIUM 3 MG TABLET PO SCH (17:42)
[2017-10-22] MEDS: GABAPENTIN 300 MG CAPSULE PO SCH (21:52)
[2017-10-22] MEDS: ROSUVASTATIN CALCIUM 20 MG TABLET PO SCH (21:53)
[2017-10-22] MEDS: HydrOXYzine HCL 25 MG TABLET PO SCH (21:56)
[2017-10-22] MEDS ORDERED: MYCO250C36 PO (22:05)
[2017-10-23 03:44] VITALS: BP 93/53
[2017-10-23 06:56] LABS: INR 1.8 (0.9-1.1); PROTHROMBIN TIME 18.2 SEC (9.4-11.6)
[2017-10-23 07:18] VITALS: BP 95/54
[2017-10-23 07:23] LABS: ANION GAP 8 mmol/L (8-16); CALCIUM, TOTAL 8.6 mg/dL (8.8-10.5); CARBON DIOXIDE 26 mmol/L (22-29); CHLORIDE 105 mmol/L (98-107); CREATINE KINASE MB 0.8 ng/mL (0-5); CREATINE KINASE, TOTAL 85 U/L (26-192); CREATININE 1.26 mg/dL (0.60-1.30); GLOMERULAR FILTR. RATE CALC 43 mL/min (>60); GLUCOSE,RANDOM 149 mg/dL (70-110); POTASSIUM 3.6 mmol/L (3.5-5.1); SODIUM SERUM 139 mmol/L (136-145); UREA NITROGEN, BLOOD 19 mg/dL (7-18)
[2017-10-23 07:52] LABS: B-TYPE NATRIURETIC PEPTIDE 232 pg/mL (0-100)
[2017-10-23] MEDS: CARVEDILOL 3.125 MG TABLET PO SCH ×2 (09:00→21:00)
[2017-10-23] MEDS: FUROSEMIDE 20 MG/2 ML VIAL IVP SCH (09:00)
[2017-10-23] MEDS: LevETIRAcetam 500 MG TABLET PO SCH ×2 (10:19→21:55)
[2017-10-23] MEDS: ASPIRIN 81 MG CHEWABLE TABLET PO SCH (10:19)
[2017-10-23] MEDS: MULTIVITAMINS, THERAPEUTIC TABLET PO SCH (10:19)
[2017-10-23] MEDS: FOLIC ACID 1 MG TABLET PO SCH ×2 (10:19→21:55)
[2017-10-23] MEDS: DICYCLOMINE HCL 20 MG TABLET PO SCH ×2 (10:20→21:54)
[2017-10-23] MEDS: RANOLAZINE 500 MG SR TABLET PO SCH ×2 (10:20→21:56)
[2017-10-23] MEDS: TICAGRELOR 90 MG TABLET PO SCH ×2 (10:21→21:54)
[2017-10-23] MEDS: GABAPENTIN 100 MG CAPSULE PO SCH (10:21)
[2017-10-23] MEDS: HYDROXYCHLOROQUINE SULFATE 200 MG TABLET PO SCH ×2 (10:22→21:56)
[2017-10-23] MEDS: ISOSORBIDE DINITRATE 20 MG TABLET PO SCH ×2 (10:22→21:00)
[2017-10-23 11:34] VITALS: BP 111/63
[2017-10-23 16:18] VITALS: BP 109/65
[2017-10-23] MEDS: WARFARIN SODIUM 3 MG TABLET PO SCH (17:53)
[2017-10-23 19:18] VITALS: BP 140/68
[2017-10-23] MEDS: HydrOXYzine HCL 25 MG TABLET PO SCH (21:53)
[2017-10-23] MEDS: MYCOPHENOLATE MOFETIL 250 MG CAPSULE PO SCH (21:54)
[2017-10-23] MEDS: ROSUVASTATIN CALCIUM 20 MG TABLET PO SCH (21:54)
[2017-10-23] MEDS: GABAPENTIN 300 MG CAPSULE PO SCH (21:56)
[2017-10-23] MEDS: HYDROCODONE/ACETAMINOPHEN 10-325 MG TABLET PO PRN (21:57)
[2017-10-24 00:05] VITALS: BP 136/74
[2017-10-24 05:30] VITALS: BP 105/59
[2017-10-24 06:16] LABS: INR 1.7 (0.9-1.1); PROTHROMBIN TIME 17.5 SEC (9.4-11.6)
[2017-10-24] MEDS: MYCOPHENOLATE MOFETIL 250 MG CAPSULE PO SCH (08:13)
[2017-10-24] MEDS: ISOSORBIDE DINITRATE 20 MG TABLET PO SCH (08:15)
[2017-10-24] MEDS: LevETIRAcetam 500 MG TABLET PO SCH (08:15)
[2017-10-24] MEDS: FUROSEMIDE 20 MG/2 ML VIAL IVP SCH (08:16)
[2017-10-24] MEDS: DICYCLOMINE HCL 20 MG TABLET PO SCH (08:16)
[2017-10-24] MEDS: FOLIC ACID 1 MG TABLET PO SCH (08:16)
[2017-10-24] MEDS: METHIMAZOLE 5 MG TABLET PO SCH (08:17)
[2017-10-24] MEDS: RANOLAZINE 500 MG SR TABLET PO SCH (08:17)
[2017-10-24] MEDS: HYDROXYCHLOROQUINE SULFATE 200 MG TABLET PO SCH (08:18)
[2017-10-24] MEDS: GABAPENTIN 100 MG CAPSULE PO SCH (08:20)
[2017-10-24] MEDS: MULTIVITAMINS, THERAPEUTIC TABLET PO SCH (08:21)
[2017-10-24] MEDS: TICAGRELOR 90 MG TABLET PO SCH (08:22)
[2017-10-24] MEDS: CARVEDILOL 3.125 MG TABLET PO SCH (08:22)
[2017-10-24] MEDS: ASPIRIN 81 MG CHEWABLE TABLET PO SCH (08:23)
[2017-10-24 08:30] VITALS: BP 154/79
[2017-10-24 11:32] VITALS: BP 103/54
[2017-10-24 15:35] VITALS: BP 116/66
== END 2017-10-24 16:00 | disposition home or self-care (01) | DRG 194 ==
LOC: EMS 13:22 → 5S 18:52
PROVIDERS: ADMIT Internal Medicine; ATTEND Internal Medicine
DX: I13.0 Hypertensive heart and chronic kidney disease with heart failure and stage 1 through stage 4 chronic kidney disease, or unspecified chronic kidney disease (principal); D68.61 Antiphospholipid syndrome; E11.22 Type 2 diabetes mellitus with diabetic chronic kidney disease; N20.9 Urinary calculus, unspecified; E11.51 Type 2 diabetes mellitus with diabetic peripheral angiopathy without gangrene; I44.0 Atrioventricular block, first degree; I50.31 Acute diastolic (congestive) heart failure; I25.110 Atherosclerotic heart disease of native coronary artery with unstable angina pectoris; N18.9 Chronic kidney disease, unspecified; G89.29 Other chronic pain; M79.2 Neuralgia and neuritis, unspecified; E03.9 Hypothyroidism, unspecified; I25.2 Old myocardial infarction; Z95.0 Presence of cardiac pacemaker; Z95.1 Presence of aortocoronary bypass graft; Z95.5 Presence of coronary angioplasty implant and graft; Z88.0 Allergy status to penicillin; Z88.8 Allergy status to other drugs, medicaments and biological substances; Z79.82 Long term (current) use of aspirin; Z79.899 Other long term (current) drug therapy; Z85.41 Personal history of malignant neoplasm of cervix uteri; Z86.718 Personal history of other venous thrombosis and embolism; Z86.73 Personal history of transient ischemic attack (TIA), and cerebral infarction without residual deficits; Z87.442 Personal history of urinary calculi; Z87.440 Personal history of urinary (tract) infections
CPT/HCPCS: 71275; 76770; 82962; 83735; 87086; 93005; 93306; 96374; 96375; 96376; 97110; 97161; 97167; 97535; 99291; J1940; J2270; J2405; J7050; J7517; Q0162

== ENCOUNTER → 2018-07-21 | Outpatient (CLI) | payer OTHER ==
[~2018-07-21] VITALS: Ht 160 cm; Wt 79.0 kg
[~2018-07-21] MED LIST changes: -CARV3 PO; +CARV6 PO; -CLOP75 PO; -ESOM40CA PO; +EVOL140S SQ; +GABA-531 PO; -LOSA50TA37 PO; -MULTIVITAMINS, THERAPEUTIC TABLET PO SCH; +MYCO250C36 PO; -MYCO500T5 PO; -PANT40TA25 PO; +POTA8TAB4 PO; -SUCR1TAB PO; -TEMA30 PO; +TICA90TA PO
[2018-07-21 09:51] VITALS: BP 129/70
== END | disposition home or self-care (01) ==
LOC: HBOWC 09:00
PROVIDERS: ATTEND Podiatrist
DX: E11.621 Type 2 diabetes mellitus with foot ulcer (principal); L97.522 Non-pressure chronic ulcer of other part of left foot with fat layer exposed; L97.422 Non-pressure chronic ulcer of left heel and midfoot with fat layer exposed; I25.10 Atherosclerotic heart disease of native coronary artery without angina pectoris; E11.51 Type 2 diabetes mellitus with diabetic peripheral angiopathy without gangrene; E11.622 Type 2 diabetes mellitus with other skin ulcer; I13.0 Hypertensive heart and chronic kidney disease with heart failure and stage 1 through stage 4 chronic kidney disease, or unspecified chronic kidney disease; I50.31 Acute diastolic (congestive) heart failure; N18.9 Chronic kidney disease, unspecified; E03.9 Hypothyroidism, unspecified; I25.2 Old myocardial infarction; G89.29 Other chronic pain; Z79.82 Long term (current) use of aspirin; Z86.73 Personal history of transient ischemic attack (TIA), and cerebral infarction without residual deficits; Z95.0 Presence of cardiac pacemaker; Z85.41 Personal history of malignant neoplasm of cervix uteri; Z79.01 Long term (current) use of anticoagulants; Z86.718 Personal history of other venous thrombosis and embolism; Z95.1 Presence of aortocoronary bypass graft; Z89.422 Acquired absence of other left toe(s)
CPT/HCPCS: 11042

== ENCOUNTER → 2018-07-28 | Outpatient (CLI) | payer OTHER ==
[2018-07-28 12:26] VITALS: BP 120/67
== END | disposition home or self-care (01) ==
LOC: HBOWC 10:34
PROVIDERS: ATTEND Podiatrist
DX: E11.621 Type 2 diabetes mellitus with foot ulcer (principal); L97.522 Non-pressure chronic ulcer of other part of left foot with fat layer exposed; L97.421 Non-pressure chronic ulcer of left heel and midfoot limited to breakdown of skin; I87.2 Venous insufficiency (chronic) (peripheral); E11.51 Type 2 diabetes mellitus with diabetic peripheral angiopathy without gangrene; I25.10 Atherosclerotic heart disease of native coronary artery without angina pectoris; E11.22 Type 2 diabetes mellitus with diabetic chronic kidney disease; I13.0 Hypertensive heart and chronic kidney disease with heart failure and stage 1 through stage 4 chronic kidney disease, or unspecified chronic kidney disease; I50.31 Acute diastolic (congestive) heart failure; N18.9 Chronic kidney disease, unspecified; E03.9 Hypothyroidism, unspecified; I25.2 Old myocardial infarction; G89.29 Other chronic pain; Z85.41 Personal history of malignant neoplasm of cervix uteri; Z79.01 Long term (current) use of anticoagulants; Z79.82 Long term (current) use of aspirin; Z86.718 Personal history of other venous thrombosis and embolism; Z95.1 Presence of aortocoronary bypass graft; Z86.73 Personal history of transient ischemic attack (TIA), and cerebral infarction without residual deficits; Z95.0 Presence of cardiac pacemaker; Z89.422 Acquired absence of other left toe(s)
CPT/HCPCS: 11042

== ENCOUNTER → 2018-08-04 | Outpatient (CLI) | payer OTHER ==
[2018-08-04 10:36] VITALS: BP 128/68
== END | disposition home or self-care (01) ==
LOC: HBOWC 10:12
PROVIDERS: ATTEND Podiatrist
DX: E11.621 Type 2 diabetes mellitus with foot ulcer (principal); L97.422 Non-pressure chronic ulcer of left heel and midfoot with fat layer exposed; L97.522 Non-pressure chronic ulcer of other part of left foot with fat layer exposed; E11.51 Type 2 diabetes mellitus with diabetic peripheral angiopathy without gangrene; I87.2 Venous insufficiency (chronic) (peripheral); E03.9 Hypothyroidism, unspecified; I25.10 Atherosclerotic heart disease of native coronary artery without angina pectoris; E11.22 Type 2 diabetes mellitus with diabetic chronic kidney disease; I13.0 Hypertensive heart and chronic kidney disease with heart failure and stage 1 through stage 4 chronic kidney disease, or unspecified chronic kidney disease; I50.31 Acute diastolic (congestive) heart failure; N18.9 Chronic kidney disease, unspecified; I25.2 Old myocardial infarction; G89.29 Other chronic pain; Z85.41 Personal history of malignant neoplasm of cervix uteri; Z86.718 Personal history of other venous thrombosis and embolism; Z95.1 Presence of aortocoronary bypass graft; Z95.0 Presence of cardiac pacemaker; Z86.73 Personal history of transient ischemic attack (TIA), and cerebral infarction without residual deficits; Z79.82 Long term (current) use of aspirin; Z79.01 Long term (current) use of anticoagulants; Z89.422 Acquired absence of other left toe(s)
CPT/HCPCS: 11042

== ENCOUNTER → 2018-08-11 | Outpatient (CLI) | payer OTHER ==
[2018-08-11 11:01] VITALS: BP 132/68
== END | disposition home or self-care (01) ==
LOC: HBOWC 09:38
PROVIDERS: ATTEND Podiatrist
DX: E11.621 Type 2 diabetes mellitus with foot ulcer (principal); L97.522 Non-pressure chronic ulcer of other part of left foot with fat layer exposed; L97.422 Non-pressure chronic ulcer of left heel and midfoot with fat layer exposed; I87.2 Venous insufficiency (chronic) (peripheral); E11.51 Type 2 diabetes mellitus with diabetic peripheral angiopathy without gangrene; I25.10 Atherosclerotic heart disease of native coronary artery without angina pectoris; E03.9 Hypothyroidism, unspecified; E11.22 Type 2 diabetes mellitus with diabetic chronic kidney disease; I13.0 Hypertensive heart and chronic kidney disease with heart failure and stage 1 through stage 4 chronic kidney disease, or unspecified chronic kidney disease; N18.9 Chronic kidney disease, unspecified; I50.31 Acute diastolic (congestive) heart failure; I25.2 Old myocardial infarction; G89.29 Other chronic pain; Z85.41 Personal history of malignant neoplasm of cervix uteri; Z86.718 Personal history of other venous thrombosis and embolism; Z86.73 Personal history of transient ischemic attack (TIA), and cerebral infarction without residual deficits; Z79.01 Long term (current) use of anticoagulants; Z79.82 Long term (current) use of aspirin; Z95.0 Presence of cardiac pacemaker; Z95.1 Presence of aortocoronary bypass graft; Z89.422 Acquired absence of other left toe(s)
CPT/HCPCS: 11042

== ENCOUNTER → 2018-08-18 | Outpatient (CLI) | payer OTHER ==
[2018-08-18 10:00] VITALS: BP 119/58
== END | disposition home or self-care (01) ==
LOC: HBOWC 09:39
PROVIDERS: ATTEND Podiatrist
DX: E11.621 Type 2 diabetes mellitus with foot ulcer (principal); L97.522 Non-pressure chronic ulcer of other part of left foot with fat layer exposed; L97.422 Non-pressure chronic ulcer of left heel and midfoot with fat layer exposed; E11.51 Type 2 diabetes mellitus with diabetic peripheral angiopathy without gangrene; I87.2 Venous insufficiency (chronic) (peripheral); E03.9 Hypothyroidism, unspecified; I25.10 Atherosclerotic heart disease of native coronary artery without angina pectoris; E11.22 Type 2 diabetes mellitus with diabetic chronic kidney disease; I13.0 Hypertensive heart and chronic kidney disease with heart failure and stage 1 through stage 4 chronic kidney disease, or unspecified chronic kidney disease; I50.31 Acute diastolic (congestive) heart failure; N18.9 Chronic kidney disease, unspecified; I25.2 Old myocardial infarction; G89.29 Other chronic pain; Z86.718 Personal history of other venous thrombosis and embolism; Z85.41 Personal history of malignant neoplasm of cervix uteri; Z95.1 Presence of aortocoronary bypass graft; Z86.73 Personal history of transient ischemic attack (TIA), and cerebral infarction without residual deficits; Z79.01 Long term (current) use of anticoagulants; Z79.82 Long term (current) use of aspirin; Z89.422 Acquired absence of other left toe(s); Z95.0 Presence of cardiac pacemaker
CPT/HCPCS: 11042

== ENCOUNTER → 2018-08-25 | Outpatient (CLI) | payer OTHER ==
[2018-08-25 11:00] VITALS: BP 100/55
== END | disposition home or self-care (01) ==
LOC: HBOWC 10:26
PROVIDERS: ATTEND Podiatrist
DX: E11.621 Type 2 diabetes mellitus with foot ulcer (principal); L97.522 Non-pressure chronic ulcer of other part of left foot with fat layer exposed; L97.422 Non-pressure chronic ulcer of left heel and midfoot with fat layer exposed; E11.51 Type 2 diabetes mellitus with diabetic peripheral angiopathy without gangrene; I87.2 Venous insufficiency (chronic) (peripheral); E03.9 Hypothyroidism, unspecified; E11.22 Type 2 diabetes mellitus with diabetic chronic kidney disease; I13.0 Hypertensive heart and chronic kidney disease with heart failure and stage 1 through stage 4 chronic kidney disease, or unspecified chronic kidney disease; I50.31 Acute diastolic (congestive) heart failure; N18.9 Chronic kidney disease, unspecified; I25.2 Old myocardial infarction; I25.10 Atherosclerotic heart disease of native coronary artery without angina pectoris; G89.29 Other chronic pain; Z79.01 Long term (current) use of anticoagulants; Z95.1 Presence of aortocoronary bypass graft; Z86.73 Personal history of transient ischemic attack (TIA), and cerebral infarction without residual deficits; Z79.82 Long term (current) use of aspirin; Z95.0 Presence of cardiac pacemaker; Z86.718 Personal history of other venous thrombosis and embolism; Z89.422 Acquired absence of other left toe(s); Z90.710 Acquired absence of both cervix and uterus
CPT/HCPCS: 11042

== ENCOUNTER → 2018-09-08 | Outpatient (CLI) | payer OTHER ==
[2018-09-08 11:00] VITALS: BP 124/71
== END | disposition home or self-care (01) ==
LOC: HBOWC 10:32
PROVIDERS: ATTEND Podiatrist
DX: E11.621 Type 2 diabetes mellitus with foot ulcer (principal); L97.522 Non-pressure chronic ulcer of other part of left foot with fat layer exposed; L97.422 Non-pressure chronic ulcer of left heel and midfoot with fat layer exposed; E11.51 Type 2 diabetes mellitus with diabetic peripheral angiopathy without gangrene; E03.9 Hypothyroidism, unspecified; I25.10 Atherosclerotic heart disease of native coronary artery without angina pectoris; E11.22 Type 2 diabetes mellitus with diabetic chronic kidney disease; I13.0 Hypertensive heart and chronic kidney disease with heart failure and stage 1 through stage 4 chronic kidney disease, or unspecified chronic kidney disease; I50.31 Acute diastolic (congestive) heart failure; N18.9 Chronic kidney disease, unspecified; I25.2 Old myocardial infarction; G89.29 Other chronic pain; Z86.718 Personal history of other venous thrombosis and embolism; Z95.1 Presence of aortocoronary bypass graft; Z86.73 Personal history of transient ischemic attack (TIA), and cerebral infarction without residual deficits; Z85.41 Personal history of malignant neoplasm of cervix uteri; Z79.01 Long term (current) use of anticoagulants; Z79.82 Long term (current) use of aspirin; Z95.0 Presence of cardiac pacemaker; Z90.710 Acquired absence of both cervix and uterus; Z89.422 Acquired absence of other left toe(s)
CPT/HCPCS: 11042

== ENCOUNTER → 2018-09-15 | Outpatient (CLI) | payer OTHER ==
[~2018-09-15] MED LIST changes: +LIDOCAINE 2% 5 ML JELLY TP ONE
[2018-09-15 11:20] VITALS: BP 113/68
== END | disposition home or self-care (01) ==
LOC: HBOWC 11:15
PROVIDERS: ATTEND Podiatrist
DX: E11.621 Type 2 diabetes mellitus with foot ulcer (principal); L97.422 Non-pressure chronic ulcer of left heel and midfoot with fat layer exposed; L97.521 Non-pressure chronic ulcer of other part of left foot limited to breakdown of skin; E11.51 Type 2 diabetes mellitus with diabetic peripheral angiopathy without gangrene; I87.2 Venous insufficiency (chronic) (peripheral); E03.9 Hypothyroidism, unspecified; I25.10 Atherosclerotic heart disease of native coronary artery without angina pectoris; E11.22 Type 2 diabetes mellitus with diabetic chronic kidney disease; I13.0 Hypertensive heart and chronic kidney disease with heart failure and stage 1 through stage 4 chronic kidney disease, or unspecified chronic kidney disease; I50.31 Acute diastolic (congestive) heart failure; N18.9 Chronic kidney disease, unspecified; I25.2 Old myocardial infarction; G89.29 Other chronic pain; Z85.41 Personal history of malignant neoplasm of cervix uteri; Z86.718 Personal history of other venous thrombosis and embolism; Z86.73 Personal history of transient ischemic attack (TIA), and cerebral infarction without residual deficits; Z95.1 Presence of aortocoronary bypass graft; Z79.82 Long term (current) use of aspirin; Z79.01 Long term (current) use of anticoagulants; Z95.0 Presence of cardiac pacemaker; Z90.710 Acquired absence of both cervix and uterus; Z89.422 Acquired absence of other left toe(s)
CPT/HCPCS: 11042

== ENCOUNTER 2018-09-18 05:18 | Day surgery (SDC) | payer OTHER ==
[~2018-09-18] VITALS: Ht 160 cm; Wt 69.5 kg
[~2018-09-18 05:18] MED LIST changes: -LIDOCAINE 2% 5 ML JELLY TP ONE
[2018-09-18] MEDS ORDERED: SODIUM CHLORIDE 0.9% 1,000 ML IV ONE ×2 (06:00→06:09)
[2018-09-18] MEDS ORDERED: SODIUM BICARBONATE 50 MEQ/50 ML VIAL ONE (07:41)
[2018-09-18] MEDS ORDERED: LIDOCAINE/PF 1% 30 ML VIAL ONE (07:41)
[2018-09-18] MEDS ORDERED: HEPARIN SODIUM 1000 UNITS/NS 500 ML ONE ×3 (07:54→09:18)
[2018-09-18] MEDS ORDERED: IODIXANOL 320 MG/ML 100 ML VIAL ONE (07:57)
[2018-09-18 08:01] VITALS: BP 127/72
[2018-09-18] MEDS ORDERED: FentaNYL CITRATE-PF 100 MCG/2 ML VIAL ONE (08:22)
[2018-09-18] MEDS ORDERED: MIDAZOLAM HCL 2 MG/2 ML VIAL ONE (08:22)
[2018-09-18] MEDS ORDERED: SODIUM CHLORIDE 0.9% 500 ML IV ONE (08:36)
[2018-09-18] MEDS ORDERED: HEPARIN SODIUM 1000 UNITS/NS 1,000 ML IARTER ONE (08:36)
[2018-09-18] MEDS ORDERED: FentaNYL CITRATE-PF 100 MCG/2 ML VIAL IVP ONE ×2 (08:45→09:00)
[2018-09-18] MEDS ORDERED: LIDOCAINE 1% 30 ML/SOD BICARB 8.4% 4 ML SQ ONE (08:45)
[2018-09-18] MEDS ORDERED: MIDAZOLAM HCL 2 MG/2 ML VIAL IVP ONE ×2 (08:45→09:00)
[2018-09-18] MEDS ORDERED: IODIXANOL 320 MG/ML 50 ML VIAL ONE (09:41)
[2018-09-18 10:12] VITALS: BP 96/59
== END 2018-09-18 16:10 | disposition home or self-care (01) ==
LOC: CATHLAB 05:18
PROVIDERS: ATTEND Radiology Vascular & Interventional Radiology
DX: I70.202 Unspecified atherosclerosis of native arteries of extremities, left leg (principal); I25.10 Atherosclerotic heart disease of native coronary artery without angina pectoris; J44.9 Chronic obstructive pulmonary disease, unspecified; E03.9 Hypothyroidism, unspecified; I25.2 Old myocardial infarction; Z86.73 Personal history of transient ischemic attack (TIA), and cerebral infarction without residual deficits; Z87.891 Personal history of nicotine dependence; Z98.890 Other specified postprocedural states; Z95.5 Presence of coronary angioplasty implant and graft; Z90.710 Acquired absence of both cervix and uterus; Z98.49 Cataract extraction status, unspecified eye
CPT/HCPCS: 37228; C1725; C1769; J1644; J2250; J3010; J3490 ×2; J7030; Q9967 ×2; 75962

== ENCOUNTER → 2018-09-29 | Outpatient (CLI) | payer OTHER ==
[2018-09-29 11:00] VITALS: BP 112/61
== END | disposition home or self-care (01) ==
LOC: HBOWC 10:12
PROVIDERS: ATTEND Podiatrist
DX: E11.621 Type 2 diabetes mellitus with foot ulcer (principal); L97.522 Non-pressure chronic ulcer of other part of left foot with fat layer exposed; L97.422 Non-pressure chronic ulcer of left heel and midfoot with fat layer exposed; I87.2 Venous insufficiency (chronic) (peripheral); E11.51 Type 2 diabetes mellitus with diabetic peripheral angiopathy without gangrene; E03.9 Hypothyroidism, unspecified; I25.10 Atherosclerotic heart disease of native coronary artery without angina pectoris; E11.22 Type 2 diabetes mellitus with diabetic chronic kidney disease; I50.31 Acute diastolic (congestive) heart failure; I13.0 Hypertensive heart and chronic kidney disease with heart failure and stage 1 through stage 4 chronic kidney disease, or unspecified chronic kidney disease; N18.9 Chronic kidney disease, unspecified; I25.2 Old myocardial infarction; Z85.41 Personal history of malignant neoplasm of cervix uteri; Z86.718 Personal history of other venous thrombosis and embolism; Z86.73 Personal history of transient ischemic attack (TIA), and cerebral infarction without residual deficits; Z79.01 Long term (current) use of anticoagulants; Z79.82 Long term (current) use of aspirin; Z90.710 Acquired absence of both cervix and uterus; Z89.422 Acquired absence of other left toe(s); Z95.0 Presence of cardiac pacemaker
CPT/HCPCS: 11042

== ENCOUNTER → 2018-10-06 | Outpatient (CLI) | payer OTHER ==
[2018-10-06 10:34] VITALS: BP 128/72
== END | disposition home or self-care (01) ==
LOC: HBOWC 09:49
PROVIDERS: ATTEND Podiatrist
DX: E11.621 Type 2 diabetes mellitus with foot ulcer (principal); L97.522 Non-pressure chronic ulcer of other part of left foot with fat layer exposed; L97.422 Non-pressure chronic ulcer of left heel and midfoot with fat layer exposed; I87.2 Venous insufficiency (chronic) (peripheral); E11.51 Type 2 diabetes mellitus with diabetic peripheral angiopathy without gangrene; E03.9 Hypothyroidism, unspecified; I25.10 Atherosclerotic heart disease of native coronary artery without angina pectoris; E11.22 Type 2 diabetes mellitus with diabetic chronic kidney disease; I50.31 Acute diastolic (congestive) heart failure; I13.0 Hypertensive heart and chronic kidney disease with heart failure and stage 1 through stage 4 chronic kidney disease, or unspecified chronic kidney disease; N18.9 Chronic kidney disease, unspecified; I25.2 Old myocardial infarction; Z85.41 Personal history of malignant neoplasm of cervix uteri; Z86.718 Personal history of other venous thrombosis and embolism; Z86.73 Personal history of transient ischemic attack (TIA), and cerebral infarction without residual deficits; Z79.01 Long term (current) use of anticoagulants; Z79.82 Long term (current) use of aspirin; Z90.710 Acquired absence of both cervix and uterus; Z89.422 Acquired absence of other left toe(s); Z95.0 Presence of cardiac pacemaker
CPT/HCPCS: 11042

== ENCOUNTER → 2018-10-13 | Outpatient (CLI) | payer OTHER ==
[2018-10-13 10:49] VITALS: BP 122/57
== END | disposition home or self-care (01) ==
LOC: HBOWC 10:00
PROVIDERS: ATTEND Podiatrist
DX: E11.621 Type 2 diabetes mellitus with foot ulcer (principal); L97.522 Non-pressure chronic ulcer of other part of left foot with fat layer exposed; L97.422 Non-pressure chronic ulcer of left heel and midfoot with fat layer exposed; L97.511 Non-pressure chronic ulcer of other part of right foot limited to breakdown of skin; I87.2 Venous insufficiency (chronic) (peripheral); E11.51 Type 2 diabetes mellitus with diabetic peripheral angiopathy without gangrene; E03.9 Hypothyroidism, unspecified; I25.10 Atherosclerotic heart disease of native coronary artery without angina pectoris; E11.22 Type 2 diabetes mellitus with diabetic chronic kidney disease; I13.0 Hypertensive heart and chronic kidney disease with heart failure and stage 1 through stage 4 chronic kidney disease, or unspecified chronic kidney disease; I50.31 Acute diastolic (congestive) heart failure; N18.9 Chronic kidney disease, unspecified; J44.9 Chronic obstructive pulmonary disease, unspecified; I25.2 Old myocardial infarction; G89.29 Other chronic pain; Z86.73 Personal history of transient ischemic attack (TIA), and cerebral infarction without residual deficits; Z85.41 Personal history of malignant neoplasm of cervix uteri; Z87.891 Personal history of nicotine dependence; Z95.820 Peripheral vascular angioplasty status with implants and grafts; Z98.49 Cataract extraction status, unspecified eye; Z79.82 Long term (current) use of aspirin; Z79.01 Long term (current) use of anticoagulants; Z95.0 Presence of cardiac pacemaker; Z90.710 Acquired absence of both cervix and uterus; Z89.422 Acquired absence of other left toe(s)
CPT/HCPCS: 11042

== ENCOUNTER → 2018-10-20 | Outpatient (CLI) | payer OTHER ==
[~2018-10-20] MED LIST changes: +LIDOCAINE 2% 5 ML JELLY TP ONE; +LOPE2 PO; +METO5TAB95 PO
[2018-10-20 11:10] VITALS: BP 109/65
== END | disposition home or self-care (01) ==
LOC: HBOWC 10:14
PROVIDERS: ATTEND Podiatrist
DX: E11.621 Type 2 diabetes mellitus with foot ulcer (principal); L97.522 Non-pressure chronic ulcer of other part of left foot with fat layer exposed; L97.422 Non-pressure chronic ulcer of left heel and midfoot with fat layer exposed; L97.511 Non-pressure chronic ulcer of other part of right foot limited to breakdown of skin; I87.2 Venous insufficiency (chronic) (peripheral); E11.51 Type 2 diabetes mellitus with diabetic peripheral angiopathy without gangrene; E03.9 Hypothyroidism, unspecified; I25.10 Atherosclerotic heart disease of native coronary artery without angina pectoris; E11.22 Type 2 diabetes mellitus with diabetic chronic kidney disease; I13.0 Hypertensive heart and chronic kidney disease with heart failure and stage 1 through stage 4 chronic kidney disease, or unspecified chronic kidney disease; I50.31 Acute diastolic (congestive) heart failure; N18.9 Chronic kidney disease, unspecified; J44.9 Chronic obstructive pulmonary disease, unspecified; I25.2 Old myocardial infarction; G89.29 Other chronic pain; Z86.73 Personal history of transient ischemic attack (TIA), and cerebral infarction without residual deficits; Z85.41 Personal history of malignant neoplasm of cervix uteri; Z87.891 Personal history of nicotine dependence; Z95.820 Peripheral vascular angioplasty status with implants and grafts; Z98.49 Cataract extraction status, unspecified eye; Z79.82 Long term (current) use of aspirin; Z79.01 Long term (current) use of anticoagulants; Z95.0 Presence of cardiac pacemaker; Z90.710 Acquired absence of both cervix and uterus; Z89.422 Acquired absence of other left toe(s)
CPT/HCPCS: 11042

== ENCOUNTER → 2018-10-27 | Outpatient (CLI) | payer OTHER ==
[~2018-10-27] MED LIST changes: -LIDOCAINE 2% 5 ML JELLY TP ONE
[2018-10-27 10:30] VITALS: BP 107/64
== END | disposition home or self-care (01) ==
LOC: HBOWC 10:14
PROVIDERS: ATTEND Podiatrist
DX: E11.621 Type 2 diabetes mellitus with foot ulcer (principal); L97.522 Non-pressure chronic ulcer of other part of left foot with fat layer exposed; L97.422 Non-pressure chronic ulcer of left heel and midfoot with fat layer exposed; L97.511 Non-pressure chronic ulcer of other part of right foot limited to breakdown of skin; I87.2 Venous insufficiency (chronic) (peripheral); E11.51 Type 2 diabetes mellitus with diabetic peripheral angiopathy without gangrene; E03.9 Hypothyroidism, unspecified; I25.10 Atherosclerotic heart disease of native coronary artery without angina pectoris; E11.22 Type 2 diabetes mellitus with diabetic chronic kidney disease; I13.0 Hypertensive heart and chronic kidney disease with heart failure and stage 1 through stage 4 chronic kidney disease, or unspecified chronic kidney disease; I50.31 Acute diastolic (congestive) heart failure; N18.9 Chronic kidney disease, unspecified; J44.9 Chronic obstructive pulmonary disease, unspecified; I25.2 Old myocardial infarction; G89.29 Other chronic pain; Z86.73 Personal history of transient ischemic attack (TIA), and cerebral infarction without residual deficits; Z85.41 Personal history of malignant neoplasm of cervix uteri; Z87.891 Personal history of nicotine dependence; Z95.820 Peripheral vascular angioplasty status with implants and grafts; Z98.49 Cataract extraction status, unspecified eye; Z79.82 Long term (current) use of aspirin; Z79.01 Long term (current) use of anticoagulants; Z95.0 Presence of cardiac pacemaker; Z90.710 Acquired absence of both cervix and uterus; Z89.422 Acquired absence of other left toe(s)
CPT/HCPCS: 11042